=== PATIENT | male | born 1965 | race Caucasian/White ===

== ENCOUNTER 2022-12-16 09:55 | Day surgery (SDC) | payer BC, OTHER ==
[~2022-12-16 09:55] MED LIST: Lactated Ringers 1,000 ML IV SCH
--- NOTE | 2022-12-16 10:26 | HP ---
DATE OF SURGERY: 12/16/2022 HISTORY OF PRESENT ILLNESS: The patient is a 57-year-old with no prior colonoscopy. Occasional burning with some prolapsing hemorrhoids. No change in bowel movements. No new pain. Family history negative for colon cancer. PAST MEDICAL HISTORY: Hypertension, hyperlipidemia. PAST SURGICAL HISTORY: Ganglion cyst on wrist in the past. Cyst removed from his back and neck in the past. MEDICATIONS: Metoprolol, atorvastatin. ALLERGIES: NKDA. FAMILY HISTORY: Negative for colon cancer. SOCIAL HISTORY: Former smoker. No alcohol abuse. REVIEW OF SYSTEMS: Fourteen systems reviewed. No chest pain or palpitations. Other systems negative or noncontributory as above and per preadmission questionnaire. PHYSICAL EXAMINATION: BMI 38.29. GENERAL: No acute distress. HEENT: Sclerae nonicteric. NECK: No JVD. CHEST: Equal excursion, nonlabored breathing. CVS: Regular rate and rhythm. ABDOMEN: Soft. No peritoneal signs. EXTREMITIES: No significant edema. NEURO: Alert, oriented, moving extremities symmetrically. RECTAL: Deferred timed to endoscopy exam. PSYCH: Appropriate mood and affect. SKIN: Dry. IMPRESSION: The patient is in need of screening colonoscopy as he has not had a prior colonoscopy, possible internal hemorrhoid banding given his prolapsing hemorrhoids. Risks explained but not limited to bleeding or infection, risk of bowel injury, risk of perforation possibly requiring open procedure, risk of missed or nondiagnosis or incomplete exam possibly requiring other procedures, risk of sedation, risk of bowel prep but not limited to. Consent obtained. Will proceed with screening colonoscopy, possible internal hemorrhoid banding depending on operative findings. Risk of progression of hemorrhoid disease possibly requiring further procedures, perioperative risk of bleeding, risks of aches or pressure, possible need for other procedures down the road. General risk of anesthesia or sedation. He agrees to the planned procedure, will proceed with colonoscopy, possible internal hemorrhoid banding as an outpatient.
[2022-12-16] MEDS ORDERED: Lactated Ringers 1,000 ML IV ONE (10:27)
[2022-12-16] MEDS ORDERED: Xylocaine-Mpf 2% 5 Ml Vial ONE (12:38)
[2022-12-16] MEDS ORDERED: DIPRIVAN 200 MG/20 ML IV ONE ×3 (12:38→12:57)
[2022-12-16 13:57] VITALS: BP 124/71; PULSE 66; O2SAT 97
--- NOTE | 2022-12-17 08:52 | OP ---
SURGERY DATE/TIME: 12/16/2022 1242 PREOPERATIVE DIAGNOSIS: History of prolapsing internal hemorrhoids, need for screening colonoscopy. POSTOPERATIVE DIAGNOSES: 1) ASA Class III. 2) Grade 2 to 3 internal and external hemorrhoids. 3) Small polyps versus hyperplastic lesion. 4) Mild diverticulosis. PROCEDURES: 1) Colonoscopy to cecum. 2) Hot biopsy polypectomy transverse colon polyp x1, sigmoid colon polyp x2. 3) Rectal polyp x2. 4) Internal hemorrhoid banding x3 columns. SURGEON: Dr. Evgeny Gonzales. ANESTHESIA: MAC. ESTIMATED BLOOD LOSS: Minimal. INDICATIONS: As noted above. Risks and benefits explained in detail but not limited to and consent obtained. He is in need of screening colonoscopy. He is also complaining of some intermittent prolapsing hemorrhoids despite trying to manage his bowel movements. He is interested in considering internal hemorrhoid banding. Consent was obtained. DESCRIPTION OF PROCEDURE AND FINDINGS: The patient is taken to the endoscopy room. MAC anesthesia induced. After official time out and no disagreement with planned procedure, digital rectal exam revealed internal and external hemorrhoids. No palpable other rectal masses. Video colonoscope inserted and passed up through the tortuous sigmoid, descending, transverse and ascending colon around to the cecum. Appendiceal orifice and valve well visualized and photo documented. His ASA Class is III. The scope is then slowly and carefully withdrawn over the next ten minutes. No signs of any large polyps, masses or obstructing lesions. He did have some small early polyps about 2 to 2.5 mm in size in the transverse colon x1, sigmoid colon x2, rectum x3 removed with hot biopsy polypectomy. Good hemostasis noted. Otherwise the scope is withdrawn. He had a few small diverticula. No signs of any large masses or obstructing lesions. The scope is withdrawn. He did have internal and external hemorrhoids. It was felt he warranted internal hemorrhoid banding. The scope was withdrawn. Half-cr retractor carefully inserted and slightly large two or three internal and external hemorrhoids. In left lateral position suction room inspector used to resect a good tuft of tissue top edge of the hemorrhoid. A good tuft of tissue noted. Good position. Good hemostasis noted. This is repeated in the right posterior and again the right anterior. The bands fired and good tuft of tissue noted and three columns banded. There were no immediate complications. Findings discussed with the family out in the waiting area. Take sitz baths PRN as needed once or twice daily. Take Tylenol PRN aches and pains. He is to continue a high fiber diet and use FiberCon to titrate soft bulky stools and to avoid straining on bowel movements. I will see him back in the office in a couple of weeks. There were no immediate complications.
== END 2022-12-16 14:00 | disposition home or self-care (01) ==
LOC: SDC 09:55
PROVIDERS: ATTEND Surgery
DX: Z87.19 Personal history of other diseases of the digestive system (principal); K64.4 Residual hemorrhoidal skin tags; K64.8 Other hemorrhoids; K63.5 Polyp of colon; K57.30 Diverticulosis of large intestine without perforation or abscess without bleeding
CPT/HCPCS: J2704